=== PATIENT | female | born 1990 | race Two or more races ===

== ENCOUNTER 2018-01-25 17:28 | Emergency (ER) | payer MEDICAID ==
[~2018-01-25] VITALS: Ht 152.4 cm; Wt 70.3 kg
[2018-01-25] MEDS ORDERED: RISP0.5T24 PO (18:29)
[2018-01-25] MEDS ORDERED: ALBU0.63 NEB (18:29)
[2018-01-25] MEDS ORDERED: BUDE10.22 INH (18:29)
[2018-01-25 18:45] LABS: BASOPHILS # (AUTO) 0.03 x10^3/uL (0-0.1); BASOPHILS % (AUTO) 0 % (0-1); EOSINOPHILS # (AUTO) 0.08 x10^3/uL (0-0.4); EOSINOPHILS % (AUTO) 1 % (1-7); LYMPHOCYTES # (AUTO) 1.85 x10^3/uL (1-3.4); LYMPHOCYTES % (AUTO) 23 % (22-44); MD NO; MEAN CORPUSCULAR HEMOGLOBIN 31.4 pg (27.0-34.8); MEAN CORPUSCULAR HGB CONC 34.2 g/dL (32.4-35.8); MEAN CORPUSCULAR VOLUME 91.6 fL (80-100); MEAN PLATELET VOLUME 11.4 fL (7.4-10.4); MONOCYTES # (AUTO) 0.48 x10^3/uL (0.2-0.8); MONOCYTES % (AUTO) 6 % (2-9); NEUTROPHILS # (AUTO) 5.55 x10^3/uL (1.8-6.8); NEUTROPHILS % (AUTO) 70 % (42-75); PLATELET COUNT 198 x10^3/uL (130-400); RED BLOOD COUNT 3.87 x10^6/uL (3.82-5.3); RED CELL DISTRIBUTION WIDTH 13.7 % (9.6-15.2)
[2018-01-25 18:58] LABS: ALANINE AMINOTRANSFERASE 20 U/L (12-78); ALBUMIN 3.4 g/dL (3.4-5.0); ANION GAP 5 mmol/L (5-15); CALCIUM 8.4 mg/dL (8.5-10.1); CHLORIDE 112 mmol/L (98-107); CREATININE 0.79 mg/dL (0.55-1.02)
[2018-01-25 19:02] LABS: ALKALINE PHOSPHATASE 63 U/L (45-117); BILIRUBIN,TOTAL 0.4 mg/dL (0.2-1.0); TOTAL PROTEIN 6.8 g/dL (6.4-8.2); TROPONIN I < 0.015 ng/mL (0.000-0.045)
[2018-01-25] MEDS ORDERED: LORazepam 2 MG/ML, 1ML ONE (19:59)
[2018-01-25 20:43] VITALS: BP 96/66
[2018-01-25] MEDS ORDERED: LORazepam 2 MG/ML, 1ML IVPush ONE (22:30)
== END 2018-01-25 21:11 | disposition home or self-care (01) ==
LOC: ED 21:01
DX: M94.0 Chondrocostal junction syndrome [Tietze] (principal); R07.2 Precordial pain; R42 Dizziness and giddiness; J45.909 Unspecified asthma, uncomplicated
CPT/HCPCS: 36415; 71046; 80053; 84484; 84703; 85025; 93005; 96374; 99285; J2060

== ENCOUNTER 2018-02-28 19:30 | Emergency (ER) | payer MEDICAID ==
[~2018-02-28] VITALS: Ht 165.1 cm; Wt 69.4 kg
[~2018-02-28 19:30] MED LIST: ALBU0.63 NEB; BUDE10.22 INH; RISP0.5T24 PO
[2018-02-28 20:22] LABS: BASOPHILS # (AUTO) 0.02 x10^3/uL (0-0.1); BASOPHILS % (AUTO) 1 % (0-1); EOSINOPHILS # (AUTO) 0.01 x10^3/uL (0-0.4); EOSINOPHILS % (AUTO) 0 % (1-7); LYMPHOCYTES # (AUTO) 1.15 x10^3/uL (1-3.4); LYMPHOCYTES % (AUTO) 25 % (22-44); MD NO; MEAN CORPUSCULAR HEMOGLOBIN 31.5 pg (27.0-34.8); MEAN CORPUSCULAR VOLUME 92.8 fL (80-100); MEAN PLATELET VOLUME 10.8 fL (7.4-10.4); MONOCYTES # (AUTO) 0.23 x10^3/uL (0.2-0.8); MONOCYTES % (AUTO) 5 % (2-9); NEUTROPHILS # (AUTO) 3.17 x10^3/uL (1.8-6.8); NEUTROPHILS % (AUTO) 69 % (42-75); PLATELET COUNT 163 x10^3/uL (130-400); RED BLOOD COUNT 4.36 x10^6/uL (3.82-5.3)
[2018-02-28 20:35] LABS: ANION GAP 7 mmol/L (5-15); CALCIUM 8.5 mg/dL (8.5-10.1); CHLORIDE 116 mmol/L (98-107); CREATININE 0.67 mg/dL (0.55-1.02)
[2018-02-28 21:22] LABS: CULTURE INDICATED? YES; MICROSCOPIC INDICATED
[2018-02-28] MEDS ORDERED: SODIUM CHLORIDE 0.9% 1,000ML IVBOLUS ONE (21:30)
[2018-02-28] MEDS ORDERED: SODIUM CHLORIDE FLUSH 10ML SYR IVF ONE (21:30)
[2018-02-28] MEDS ORDERED: LORazepam 2 MG/ML, 1ML IVPush ONE (22:00)
[2018-02-28] MEDS ORDERED: PLEASE ENTER HEIGHT AND WEIGHT MC SCH (22:00)
[2018-02-28] MEDS ORDERED: LORazepam 2 MG/ML, 1ML ONE (22:16)
[2018-03-01 00:20] VITALS: BP 115/62
== END 2018-03-01 00:22 | disposition home or self-care (01) ==
LOC: ED 21:40
DX: R55 Syncope and collapse (principal); R53.1 Weakness; Z90.49 Acquired absence of other specified parts of digestive tract; J45.909 Unspecified asthma, uncomplicated; F32.9 Major depressive disorder, single episode, unspecified; G40.909 Epilepsy, unspecified, not intractable, without status epilepticus
CPT/HCPCS: 36415; 80048; 81001; 84703; 85025; 87086; 93005; 96374; 99285; J2060; J7030

== ENCOUNTER 2018-03-07 18:31 | Emergency (ER) | payer MEDICAID ==
[~2018-03-07] VITALS: Ht 152.4 cm; Wt 65.6 kg
[2018-03-07] MEDS ORDERED: LORazepam 1MG TABLET PO ONE (20:00)
[2018-03-07] MEDS ORDERED: KETOROLAC 30 MG/1 ML IM ONE (20:00)
[2018-03-07] MEDS ORDERED: LORazepam 1MG TABLET ONE (20:09)
[2018-03-07] MEDS ORDERED: KETOROLAC 30 MG/1 ML ONE (20:09)
[2018-03-07 21:04] VITALS: BP 95/66
== END 2018-03-07 21:07 | disposition home or self-care (01) ==
LOC: ED 20:45
DX: R07.89 Other chest pain (principal); F41.1 Generalized anxiety disorder; J45.909 Unspecified asthma, uncomplicated
CPT/HCPCS: 71045; 93005; 96372; 99284; J1885

== ENCOUNTER 2018-03-24 10:37 | Emergency (ER) | payer MEDICAID ==
[2018-03-24] MEDS ORDERED: SODIUM CHLORIDE 0.9% 1,000 ML IV ONE (11:07)
[2018-03-24 11:24] LABS: BASOPHILS % (AUTO) 0 % (0-1); EOSINOPHILS # (AUTO) 0.01 x10^3/uL (0-0.4); EOSINOPHILS % (AUTO) 0 % (1-7); LYMPHOCYTES # (AUTO) 0.69 x10^3/uL (1-3.4); LYMPHOCYTES % (AUTO) 12 % (22-44); MD NO; MEAN CORPUSCULAR HGB CONC 34.2 g/dL (32.4-35.8); MEAN CORPUSCULAR VOLUME 90.7 fL (80-100); MONOCYTES # (AUTO) 0.18 x10^3/uL (0.2-0.8); MONOCYTES % (AUTO) 3 % (2-9); NEUTROPHILS # (AUTO) 4.92 x10^3/uL (1.8-6.8); NEUTROPHILS % (AUTO) 85 % (42-75); PLATELET COUNT 183 x10^3/uL (130-400); RED BLOOD COUNT 4.53 x10^6/uL (3.82-5.3); RED CELL DISTRIBUTION WIDTH 14.3 % (9.6-15.2)
[2018-03-24] MEDS ORDERED: FAMOTIDINE 20 MG/2 ML IVP ONE (11:30)
[2018-03-24] MEDS ORDERED: SODIUM CHLORIDE 0.9% 1,000ML IVBOLUS ONE (11:30)
[2018-03-24] MEDS ORDERED: ONDANSETRON 2MG/ML, 2ML IVPush ONE (11:30)
[2018-03-24 11:37] LABS: ALANINE AMINOTRANSFERASE 134 U/L (12-78); ALBUMIN 4.2 g/dL (3.4-5.0); ANION GAP 10 mmol/L (5-15); CALCIUM 8.5 mg/dL (8.5-10.1); CHLORIDE 113 mmol/L (98-107); CREATININE 0.72 mg/dL (0.55-1.02)
[2018-03-24 11:41] LABS: ALKALINE PHOSPHATASE 72 U/L (45-117); TOTAL PROTEIN 7.7 g/dL (6.4-8.2)
[2018-03-24 13:13] LABS: MICROSCOPIC INDICATED
[2018-03-24] MEDS ORDERED: ONDANSETRON ODT 4 MG PO ONE (13:30)
[2018-03-24 13:31] LABS: CULTURE INDICATED? NO
[2018-03-24] MEDS ORDERED: ONDANSETRON 2MG/ML, 2ML ONE (13:55)
[2018-03-24] MEDS ORDERED: FAMOTIDINE 20 MG/2 ML ONE (13:55)
[2018-03-24 15:50] LABS: CLOSTRIDIUM DIFFICILE ANTIGEN NEGATIVE; CLOSTRIDIUM DIFFICILE TOXIN NEGATIVE (Negative)
[2018-03-24 15:53] VITALS: BP 98/65
== END 2018-03-24 17:27 | disposition home or self-care (01) ==
LOC: ED 17:00
DX: A08.4 Viral intestinal infection, unspecified (principal); E86.0 Dehydration; R94.5 Abnormal results of liver function studies; J45.909 Unspecified asthma, uncomplicated; G40.909 Epilepsy, unspecified, not intractable, without status epilepticus
CPT/HCPCS: 36415; 76700; 80053; 80074; 81001; 83690; 84703; 85025; 87324; 89055; 96361; 96374; 99285; J7030; Q0162; S0028